=== PATIENT | female | born 1960 | race African-American/Black ===

== ENCOUNTER 2017-01-24 12:27 | Emergency (ER) | payer OTHER ==
[~2017-01-24] VITALS: Ht 154.9 cm; Wt 82.0 kg
[~2017-01-24 12:27] MED LIST: ALBU25PO2 INH; AMLO10TA4 PO; DIAZ5SOL PO; DOXY150T PO; FLONAS NS; OMEP20CA4 PO
[2017-01-24] MEDS ORDERED: DEXAMETHASONE 10 MG/ML VIAL IM ONE (17:00)
[2017-01-24] MEDS ORDERED: SODIUM CHLORIDE 0.9% 1,000 ML IV ONE (17:00)
[2017-01-24] MEDS ORDERED: KETOROLAC 30MG/ML VIAL IV STA (17:00)
[2017-01-24 17:08] VITALS: BP 137/70
[2017-01-24] MEDS ORDERED: CLINDAMYCIN 600 MG in DEXTROSE 5% WATER 50 ML IV ONE (17:30)
== END 2017-01-24 19:23 | disposition home or self-care (01) ==
LOC: ER 13:51
DX: J02.9 Acute pharyngitis, unspecified (principal); M25.60 Stiffness of unspecified joint, not elsewhere classified; Z88.6 Allergy status to analgesic agent
CPT/HCPCS: 96365; 96372; 99284; J1100; J3490; J7030; Z7610; J1885; J7060

== ENCOUNTER 2018-06-27 03:40 | Emergency (ER) | payer MEDICAID, OTHER ==
[~2018-06-27] VITALS: Ht 154.9 cm; Wt 85.0 kg
[2018-06-27] MEDS ORDERED: ALBUTEROL (0.083%) 2.5MG/3ML NEB HHN STA (06:20)
[2018-06-27] MEDS ORDERED: METHYLPREDNISOLONE SOD SUCC 125 MG/2 ML VIAL IV STA (06:20)
[2018-06-27] MEDS ORDERED: IPRATROPIUM BROMIDE (0.02%) 0.5MG/2.5ML NEB HHN STA (06:20)
[2018-06-27 06:47] LABS: BASOPHILS % 0.8 % (0.0-2.0); EOSINOPHILS % 2.7 % (0.0-5.0); HEMATOCRIT. 38.7 % (36.0-48.0); HEMOGLOBIN. 13.1 g/dL (12.0-16.0); LYMPHOCYTES % 33.7 % (20.0-50.0); MEAN CORPUSCULAR HEMOGLOBIN 32.2 pg (28.0-32.0); MEAN CORPUSCULAR VOLUME 94.8 fL (81.0-99.0); MEAN PLATELET VOLUME 8.2 fl (7.4-10.4); MONOCYTES % 9.8 % (2.0-8.0); PLATELET 427 x1000/uL (130-400); RED BLOOD CELL COUNT 4.08 mill/uL (4.2-5.4); RED CELL DISTRIBUTION WIDTH 13.6 % (11.6-14.6)
[2018-06-27 06:51] LABS: CHLORIDE 104 mEq/L (98-107)
[2018-06-27 06:59] LABS: ETHANOL BLOOD < 10 mg/dL
[2018-06-27 07:11] LABS: INR 1.1; PARTIAL THROMBOPLASTIN TIME 26.6 sec (23.4-31.0); PROTHROMBIN TIME 10.6 sec (9.1-11.1)
[2018-06-27 08:14] LABS: CLARITY URINE CLEAR (CLEAR); COLOR URINE YELLOW (YELLOW); KETONES URINE NEGATIVE (NEGATIVE); LEUKOCYTE ESTERASE URINE NEGATIVE (NEGATIVE); NITRITE URINE NEGATIVE (NEGATIVE); OCCULT BLOOD URINE NEGATIVE (NEGATIVE); PROTEIN URINE NEGATIVE (NEGATIVE); UROBILINOGEN URINE 0.2 E.U./dL (0.2-1.0)
[2018-06-27 08:58] LABS: *AMPHETAMINES SCREEN URINE NEGATIVE (NEGATIVE); *BARBITURATES SCREEN URINE NEGATIVE (NEGATIVE); *BENZODIAZEPINES SCREEN URINE PRESUMTIVE POSITIVE (NEGATIVE); *COCAINE SCREEN URINE PRESUMTIVE POSITIVE (NEGATIVE)
[2018-06-27 08:59] LABS: CANNABINOID URINE SCREEN NEGATIVE (NEGATIVE); METHADONE URINE SCREEN NEGATIVE (NEGATIVE); OPIATES URINE SCREEN NEGATIVE (NEGATIVE); PHENCYCLIDINE URINE SCREEN NEGATIVE (NEGATIVE)
[2018-06-27] MEDS ORDERED: ACETAMINOPHEN 325MG TABLET PO ONE (09:30)
[2018-06-27 09:40] VITALS: BP 145/71
== END 2018-06-27 10:29 | disposition home or self-care (01) ==
LOC: ER 03:40
DX: J44.1 Chronic obstructive pulmonary disease with (acute) exacerbation (principal); I11.0 Hypertensive heart disease with heart failure; I50.9 Heart failure, unspecified; K21.9 Gastro-esophageal reflux disease without esophagitis; F17.210 Nicotine dependence, cigarettes, uncomplicated; Z71.6 Tobacco abuse counseling; Z90.710 Acquired absence of both cervix and uterus; Z88.0 Allergy status to penicillin; Z88.2 Allergy status to sulfonamides; Z88.6 Allergy status to analgesic agent
CPT/HCPCS: 36415; 71045; 80053; 80305; 80320; 81003; 83690; 83880; 84484; 85025; 85610; 85730; 87040; 87804; 93005; 94640; 96374; 99284; 99406; J2930; J7611; Z7610; G0480

== ENCOUNTER 2019-11-14 13:32 | Emergency (ER) | payer MEDICAID, OTHER ==
[~2019-11-14] VITALS: Ht 154.9 cm; Wt 85.0 kg
[~2019-11-14 13:32] MED LIST changes: -DOXY150T PO; +DOXY150T5 PO
[2019-11-14] MEDS ORDERED: IBUPROFEN 600MG TABLET PO STA (14:21)
[2019-11-14] MEDS ORDERED: ACETAMINOPHEN 325MG TABLET PO STA (14:21)
[2019-11-14] MEDS ORDERED: LIDOCAINE 5% PATCH TOP SCH (14:30)
[2019-11-14] MEDS ORDERED: DEXAMETHASONE 4MG/ML 1ML VIAL IM ONE (14:45)
[2019-11-14 16:29] LABS: CLARITY URINE CLEAR (CLEAR); COLOR URINE YELLOW (YELLOW); KETONES URINE NEGATIVE (NEGATIVE); LEUKOCYTE ESTERASE URINE NEGATIVE (NEGATIVE); NITRITE URINE NEGATIVE (NEGATIVE); OCCULT BLOOD URINE NEGATIVE (NEGATIVE); PROTEIN URINE NEGATIVE (NEGATIVE); SPECIFIC GRAVITY URINE 1.014 (1.005-1.030); UROBILINOGEN URINE 0.2 E.U./dL (0.2-1.0)
[2019-11-14 16:51] VITALS: BP 165/76
== END 2019-11-14 17:12 | disposition home or self-care (01) ==
LOC: ER 13:32
DX: M54.30 Sciatica, unspecified side (principal); J45.909 Unspecified asthma, uncomplicated; I10 Essential (primary) hypertension; Z88.6 Allergy status to analgesic agent; Z79.899 Other long term (current) drug therapy; Z90.710 Acquired absence of both cervix and uterus; Z98.51 Tubal ligation status
CPT/HCPCS: 81003; 93005; 96372; 99284; J1100

== ENCOUNTER 2020-08-13 10:16 | Emergency (ER) | payer MEDICAID, OTHER ==
[~2020-08-13] VITALS: Ht 154.9 cm; Wt 82.0 kg
[2020-08-13] MEDS ORDERED: T3 PO (11:06)
[2020-08-13] MEDS ORDERED: ACETAMINOPHEN WITH CODEINE 300/30MG TABLET PO ONE (11:15)
[2020-08-13] MEDS ORDERED: DEXAMETHASONE 4MG/ML 1ML VIAL IM ONE (11:15)
[2020-08-13 11:29] VITALS: BP 146/79
== END 2020-08-13 12:16 | disposition home or self-care (01) ==
LOC: ER 10:16
DX: M65.312 Trigger thumb, left thumb (principal); M65.352 Trigger finger, left little finger; J44.1 Chronic obstructive pulmonary disease with (acute) exacerbation; J45.909 Unspecified asthma, uncomplicated; I10 Essential (primary) hypertension; Z79.899 Other long term (current) drug therapy; Z98.51 Tubal ligation status; Z88.6 Allergy status to analgesic agent; Z90.710 Acquired absence of both cervix and uterus; Z90.89 Acquired absence of other organs
CPT/HCPCS: 96372; 99283; J1100

== ENCOUNTER 2020-09-29 08:32 | Emergency (ER) | payer MEDICAID, OTHER ==
[~2020-09-29] VITALS: Ht 154.9 cm; Wt 81.0 kg
[~2020-09-29 08:32] MED LIST changes: +T3 PO
[2020-09-29] MEDS ORDERED: MORPHINE SULFATE 4 MG/ML CPJ (NOT FOR IM USE) IV ONE (09:15)
[2020-09-29] MEDS ORDERED: ONDANSETRON 4MG ODT PO ONE (09:15)
[2020-09-29 09:34] VITALS: BP 134/71
== END 2020-09-29 09:55 | disposition home or self-care (01) ==
LOC: ER 08:32
DX: M54.5 Low back pain (principal); K21.9 Gastro-esophageal reflux disease without esophagitis; I10 Essential (primary) hypertension; J45.909 Unspecified asthma, uncomplicated; Z98.890 Other specified postprocedural states; Z88.6 Allergy status to analgesic agent; Z88.8 Allergy status to other drugs, medicaments and biological substances; Z88.2 Allergy status to sulfonamides; Z90.710 Acquired absence of both cervix and uterus; Z88.0 Allergy status to penicillin
CPT/HCPCS: 96374; 99283; J2270; Q0162

== ENCOUNTER 2021-07-04 07:37 | Emergency (ER) | payer MEDICAID ==
[~2021-07-04] VITALS: Ht 154.9 cm; Wt 79.0 kg
[~2021-07-04 07:37] MED LIST changes: +CETI5TAB5 MT; -DOXY150T5 PO; +LEVO500T89 MT
[2021-07-04 08:46] LABS: HEMATOCRIT. 35.2 % (36.0-48.0); HEMOGLOBIN. 12.1 g/dL (12.0-16.0); MEAN CORPUSCULAR HEMOGLOBIN 33.6 pg (28.0-32.0); MEAN PLATELET VOLUME 7.6 fl (7.4-10.4); PLATELET 729 x1000/uL (130-400); RED BLOOD CELL COUNT 3.59 mill/uL (4.2-5.4); RED CELL DISTRIBUTION WIDTH 13.3 % (11.6-14.6)
[2021-07-04 08:48] LABS: CHLORIDE 107 mEq/L (98-107)
[2021-07-04 09:44] VITALS: BP 131/71
[2021-07-04 09:50] LABS: PLATELET ESTIMATE INCREASED
== END 2021-07-04 09:44 | disposition home or self-care (01) ==
LOC: ER 07:37
DX: R04.2 Hemoptysis (principal); R05.8 Other specified cough; M54.89 Other dorsalgia; I10 Essential (primary) hypertension; Z87.01 Personal history of pneumonia (recurrent); Z86.19 Personal history of other infectious and parasitic diseases; Z88.8 Allergy status to other drugs, medicaments and biological substances; Z88.6 Allergy status to analgesic agent; Z88.0 Allergy status to penicillin; Z88.2 Allergy status to sulfonamides
CPT/HCPCS: 36415; 71045; 80053; 85025; 93005; 99285

== ENCOUNTER 2021-07-08 07:35 | Emergency (ER) | payer MEDICAID ==
[~2021-07-08] VITALS: Ht 154.9 cm; Wt 73.0 kg
[2021-07-08] MEDS ORDERED: ALBUTEROL (0.083%) 2.5MG/3ML NEB HHN STA (08:19)
[2021-07-08] MEDS ORDERED: IPRATROPIUM BROMIDE (0.02%) 0.5MG/2.5ML NEB HHN STA (08:19)
[2021-07-08 09:01] VITALS: BP 120/72
[2021-07-08] MEDS ORDERED: ALBU6.7H15 INH (09:53)
== END 2021-07-08 10:15 | disposition home or self-care (01) ==
LOC: ER 07:35
DX: J44.1 Chronic obstructive pulmonary disease with (acute) exacerbation (principal); R04.2 Hemoptysis; I10 Essential (primary) hypertension; J45.909 Unspecified asthma, uncomplicated; F17.200 Nicotine dependence, unspecified, uncomplicated; Z88.0 Allergy status to penicillin; Z88.6 Allergy status to analgesic agent; Z79.899 Other long term (current) drug therapy; Z98.51 Tubal ligation status
CPT/HCPCS: 71045; 93005; 94640; 99283; Z7610

== ENCOUNTER 2021-08-16 09:50 | Emergency (ER) | payer MEDICAID ==
[~2021-08-16] VITALS: Ht 154.9 cm; Wt 70.0 kg
[~2021-08-16 09:50] MED LIST changes: +ALBU6.7H15 INH
[2021-08-16 10:17] VITALS: BP 161/73
[2021-08-16] MEDS ORDERED: ACETAMINOPHEN 325MG TABLET PO STA (11:45)
[2021-08-16 12:18] LABS: CHLORIDE 106 mEq/L (98-107)
[2021-08-16 12:27] LABS: BASOPHILS % 0.6 % (0.0-2.0); EOSINOPHILS % 1.7 % (0.0-5.0); HEMATOCRIT. 39.6 % (36.0-48.0); HEMOGLOBIN. 13.2 g/dL (12.0-16.0); LYMPHOCYTES % 36.5 % (20.0-50.0); MEAN CORPUSCULAR HEMOGLOBIN 32.6 pg (28.0-32.0); MEAN CORPUSCULAR VOLUME 97.9 fL (81.0-99.0); MEAN PLATELET VOLUME 8.3 fl (7.4-10.4); MONOCYTES % 7.9 % (2.0-8.0); NEUTROPHILS % 53.3 % (40.0-76.0); PLATELET 402 x1000/uL (130-400); RED BLOOD CELL COUNT 4.05 mill/uL (4.2-5.4); RED CELL DISTRIBUTION WIDTH 13.5 % (11.6-14.6)
[2021-08-16] MEDS ORDERED: ACET-2708 PO ×2 (13:02)
[2021-08-16] MEDS ORDERED: TRAM50TA PO ×2 (13:02)
[2021-08-16] MEDS ORDERED: T3 PO (13:16)
== END 2021-08-16 13:33 | disposition home or self-care (01) ==
LOC: ER 11:26
DX: M25.511 Pain in right shoulder (principal); J45.909 Unspecified asthma, uncomplicated; I10 Essential (primary) hypertension; Z88.0 Allergy status to penicillin; Z88.6 Allergy status to analgesic agent; Z79.899 Other long term (current) drug therapy; Z98.51 Tubal ligation status
CPT/HCPCS: 36415; 73030; 80053; 85025; 99284

== ENCOUNTER 2021-10-02 03:51 | Emergency (ER) | payer MEDICAID ==
[~2021-10-02] VITALS: Ht 154.9 cm; Wt 80.0 kg
[~2021-10-02 03:51] MED LIST changes: -LEVO500T89 MT; +LEVO500T90 MT
[2021-10-02 05:30] VITALS: BP 149/68
[2021-10-02] MEDS ORDERED: ACETAMINOPHEN 325MG TABLET PO ONE (05:45)
[2021-10-02 06:01] LABS: BASOPHILS % 0.7 % (0.0-2.0); EOSINOPHILS % 1.8 % (0.0-5.0); HEMATOCRIT. 39.1 % (36.0-48.0); HEMOGLOBIN. 12.8 g/dL (12.0-16.0); LYMPHOCYTES % 28.9 % (20.0-50.0); MEAN CORPUSCULAR HEMOGLOBIN 32.3 pg (28.0-32.0); MEAN CORPUSCULAR VOLUME 98.9 fL (81.0-99.0); MONOCYTES % 8.2 % (2.0-8.0); NEUTROPHILS % 60.4 % (40.0-76.0); PLATELET 396 x1000/uL (130-400); RED BLOOD CELL COUNT 3.96 mill/uL (4.2-5.4); RED CELL DISTRIBUTION WIDTH 13.3 % (11.6-14.6)
[2021-10-02 06:09] LABS: CHLORIDE 108 mEq/L (98-107)
== END 2021-10-02 08:06 | disposition left against medical advice (07) ==
LOC: ER 03:51
DX: R51.9 Headache, unspecified (principal); R06.02 Shortness of breath; F43.8 Other reactions to severe stress; F41.9 Anxiety disorder, unspecified; I10 Essential (primary) hypertension; Z90.710 Acquired absence of both cervix and uterus; Z98.51 Tubal ligation status; F12.10 Cannabis abuse, uncomplicated
CPT/HCPCS: 36415; 80053; 83880; 85025; 93005; 99285

== ENCOUNTER 2023-08-02 07:16 | Emergency (ER) | payer MEDICAID ==
[~2023-08-02] VITALS: Ht 165.1 cm; Wt 94.0 kg
[~2023-08-02 07:16] MED LIST changes: +LEVO-65 MT; -LEVO500T90 MT
[2023-08-02 08:34] LABS: BASOPHILS % 0.8 % (0.0-2.0); HEMATOCRIT. 40.3 % (36.0-48.0); HEMOGLOBIN. 13.5 g/dL (12.0-16.0); LYMPHOCYTES % 27.2 % (20.0-50.0); MEAN CORPUSCULAR HEMOGLOBIN 33.4 pg (28.0-32.0); MEAN CORPUSCULAR HGB CONC 33.5 g/dL (31.0-37.0); MEAN CORPUSCULAR VOLUME 99.7 fL (81.0-99.0); MEAN PLATELET VOLUME 8.3 fl (7.4-10.4); MONOCYTES % 6.2 % (2.0-8.0); NEUTROPHILS % 63.8 % (40.0-76.0); PLATELET 420 x1000/uL (130-400); RED BLOOD CELL COUNT 4.04 mill/uL (4.2-5.4); RED CELL DISTRIBUTION WIDTH 13.2 % (11.6-14.6); WHITE BLOOD COUNT 8.3 x1000/uL (4.5-11.0)
[2023-08-02 08:43] LABS: INR 0.9; PARTIAL THROMBOPLASTIN TIME 26.8 sec (23.4-31.0); PROTHROMBIN TIME 10.4 sec (9.6-11.0)
[2023-08-02 08:50] LABS: ALANINE AMINOTRANSFERASE 26 IU/L (10-49); ALBUMIN 4.4 g/dL (3.2-4.8); ASPARTATE AMINOTRANSFERASE 23 IU/L (<34); BILIRUBIN TOTAL 0.6 mg/dL (0.1-1.0); CALCIUM 8.9 mg/dL (8.7-10.4); CARBON DIOXIDE 23 mEq/L (21-32); CHLORIDE 107 mEq/L (98-107); CREATININE 0.8 mg/dL (0.6-1.0); GLUCOSE 125 mg/dL (70-105); PROTEIN TOTAL 7.4 g/dL (6.0-8.3); SODIUM 137 mEq/L (136-145); UREA NITROGEN BLOOD 10 mg/dL (9-23)
[2023-08-02 08:51] LABS: TROPONIN I HIGH SENSITIVITY < 4 ng/L (3.0-34)
[2023-08-02] MEDS: PREDNISONE 20MG TABLET PO ONE (08:59)
[2023-08-02] MEDS: IPRATROPIUM/ALBUTEROL 0.5-3(2.5)MG/3ML NEB HHN ONE (09:02)
[2023-08-02 09:03] VITALS: PULSE 77; RESP 20; O2SAT 97
[2023-08-02] MEDS: ALBUTEROL (0.083%) 2.5MG/3ML NEB HHN ONE (09:03)
[2023-08-02 09:45] LABS: *AMPHETAMINES SCREEN URINE NEGATIVE (NEGATIVE); *BARBITURATES SCREEN URINE NEGATIVE (NEGATIVE); *BENZODIAZEPINES SCREEN URINE PRESUMPTIVE POSITIVE (NEGATIVE); *COCAINE SCREEN URINE PRESUMPTIVE POSITIVE (NEGATIVE); CANNABINOID URINE SCREEN NEGATIVE (NEGATIVE); ECSTASY MDMA SCREEN URINE NEGATIVE (NEGATIVE); METHADONE URINE SCREEN Neg (NEGATIVE); OPIATES URINE SCREEN NEGATIVE (NEGATIVE); PHENCYCLIDINE URINE SCREEN NEGATIVE (NEGATIVE)
[2023-08-02] MEDS ORDERED: P50 MT (10:01)
[2023-08-02 10:15] VITALS: BP 130/82; PULSE 85; RESP 18; TEMP 98.1
[2023-08-02 15:05] LABS: CLARITY URINE TURBID (CLEAR); COLOR URINE YELLOW (YELLOW); GLUCOSE URINE NEGATIVE (NEGATIVE); KETONES URINE NEGATIVE (NEGATIVE); LEUKOCYTE ESTERASE URINE NEGATIVE (NEGATIVE); NITRITE URINE NEGATIVE (NEGATIVE); OCCULT BLOOD URINE NEGATIVE (NEGATIVE); PH URINE 5.5 (4.5-8.0); PROTEIN URINE NEGATIVE (NEGATIVE); UROBILINOGEN URINE 0.2 E.U./dL (0.2-1.0)
[2023-08-02 15:25] LABS: SQUAMOUS EPITHELIAL CELL URINE 1+ /lpf (RARE/1+)
[2023-08-02 15:26] LABS: AMORPHOUS SEDIMENT URINE 3+ /lpf; BACTERIA URINE TRACE; RBC URINE NONE SEEN /hpf (0-2); WBC URINE 0-2 /hpf (0-2)
== END 2023-08-02 10:22 | disposition home or self-care (01) ==
LOC: ER 07:16
DX: J44.1 Chronic obstructive pulmonary disease with (acute) exacerbation (principal); F17.200 Nicotine dependence, unspecified, uncomplicated; I10 Essential (primary) hypertension; Z98.51 Tubal ligation status; Z90.710 Acquired absence of both cervix and uterus; Z88.0 Allergy status to penicillin; Z88.6 Allergy status to analgesic agent; Z79.899 Other long term (current) drug therapy; Z90.89 Acquired absence of other organs
CPT/HCPCS: 80053; 80305; 81003; 83880; 85025; 85610; 85730; 84484; 36415; 71045; 94640; 93005; 99285; J7512; Z7610 ×4

== ENCOUNTER 2024-04-29 09:36 | Emergency (ER) | payer MEDICAID ==
[~2024-04-29] VITALS: Ht 154.9 cm; Wt 81.0 kg
[~2024-04-29 09:36] MED LIST changes: +P50 MT
[2024-04-29 09:46] VITALS: BP 136/62; TEMP 98.3; O2SAT 97
[2024-04-29 09:50] VITALS: PULSE 82; RESP 18; O2SAT 97
== END 2024-04-29 13:51 | disposition left against medical advice (07) ==
LOC: ER 09:36
DX: M25.519 Pain in unspecified shoulder (principal); Z53.21 Procedure and treatment not carried out due to patient leaving prior to being seen by health care provider

== ENCOUNTER 2024-04-30 07:55 | Emergency (ER) | payer MEDICAID ==
[~2024-04-30] VITALS: Ht 154.9 cm; Wt 81.6 kg
[2024-04-30 08:06] VITALS: BP 140/75; PULSE 94; RESP 18; O2SAT 97
[2024-04-30 10:16] VITALS: TEMP 98.1
[2024-04-30] MEDS: ACETAMINOPHEN 500MG TABLET PO NR (10:16)
== END 2024-04-30 11:51 | disposition home or self-care (01) ==
LOC: ER 07:55
DX: S42.292A Other displaced fracture of upper end of left humerus, initial encounter for closed fracture (principal); F41.9 Anxiety disorder, unspecified; I10 Essential (primary) hypertension; K21.9 Gastro-esophageal reflux disease without esophagitis; J44.89 Other specified chronic obstructive pulmonary disease; Z79.899 Other long term (current) drug therapy; Z90.710 Acquired absence of both cervix and uterus; Z88.0 Allergy status to penicillin; Z88.2 Allergy status to sulfonamides; Z88.6 Allergy status to analgesic agent; W19.XXXA Unspecified fall, initial encounter; Y93.89 Activity, other specified; Y92.89 Other specified places as the place of occurrence of the external cause; Y99.8 Other external cause status
CPT/HCPCS: 73030; 73200; 99284

== ENCOUNTER 2024-12-10 05:17 | Emergency (ER) | payer MEDICAID ==
[~2024-12-10] VITALS: Ht 154.9 cm; Wt 82.0 kg
[~2024-12-10 05:17] MED LIST changes: +AMLO-905 PO; -AMLO10TA4 PO
[2024-12-10 05:26] VITALS: O2SAT 97
[2024-12-10] MEDS: MORPHINE SULFATE 4 MG/ML INJ (FOR IV/IM USE) IV ONE (06:07)
[2024-12-10 06:09] LABS: BASOPHILS % 1.3 % (0.0-2.0); EOSINOPHILS % 2.3 % (0.0-5.0); HEMATOCRIT. 40.9 % (36.0-48.0); HEMOGLOBIN. 13.8 g/dL (12.0-16.0); LYMPHOCYTES % 35.1 % (20.0-50.0); MEAN PLATELET VOLUME 8.5 fl (7.4-10.4); MONOCYTES % 11.4 % (2.0-8.0); NEUTROPHILS % 49.9 % (40.0-76.0); PLATELET 360 x1000/uL (130-400); RED BLOOD CELL COUNT 4.19 mill/uL (4.2-5.4); RED CELL DISTRIBUTION WIDTH 13.5 % (11.6-14.6)
[2024-12-10 06:17] LABS: CREATININE 0.9 mg/dL (0.6-1.0)
[2024-12-10 06:18] LABS: UREA NITROGEN BLOOD 9 mg/dL (9-23)
[2024-12-10 06:19] LABS: ASPARTATE AMINOTRANSFERASE 25 IU/L (<34); TROPONIN I HIGH SENSITIVITY < 4 ng/L (3.0-34)
[2024-12-10 06:20] LABS: BILIRUBIN DIRECT 0.2 mg/dL (<=3.0); BILIRUBIN TOTAL 0.7 mg/dL (0.1-1.0); PROTEIN TOTAL 7.2 g/dL (6.0-8.3)
[2024-12-10 07:39] VITALS: TEMP 36.7
[2024-12-10] MEDS: ACETAMINOPHEN 500MG TABLET PO PRN (09:50)
[2024-12-10 10:06] VITALS: O2SAT 96
[2024-12-10] MEDS ORDERED: GUAIFENESIN 200MG/10ML SUGAR FREE UDC PO PRN (10:45)
[2024-12-10] MEDS ORDERED: MAGNESIUM/ALUMINUM HYDROXIDE/SIMETHICONE 30ML UDC PO PRN (10:45)
[2024-12-10] MEDS ORDERED: IPRATROPIUM/ALBUTEROL 0.5-3(2.5)MG/3ML NEB HHN PRN (10:45)
[2024-12-10] MEDS ORDERED: ONDANSETRON HCL 4MG/2ML INJ IV PRN (10:45)
[2024-12-10] MEDS ORDERED: CLONIDINE 0.1MG TABLET PO PRN (10:45)
[2024-12-10] MEDS ORDERED: DOCUSATE SODIUM 100MG CAPSULE PO PRN (10:45)
[2024-12-10] MEDS ORDERED: ACETAMINOPHEN 325MG TABLET PO PRN ×2 (10:45)
[2024-12-10 10:52] LABS: PHOSPHORUS 3.8 mg/dL (2.5-4.9)
[2024-12-10] MEDS: ENOXAPARIN 40MG/0.4ML SYR SUBCUT SCH (11:00)
[2024-12-10] MEDS ORDERED: NALOXONE HCL 0.4MG/ML VIAL IV PRN (11:15)
[2024-12-10 11:16] VITALS: BP 127/84; PULSE 77; RESP 12
[2024-12-10] MEDS: MORPHINE SULFATE 2 MG/ML INJ (NOT FOR IM USE) IV PRN (11:16)
[2024-12-10] MEDS: LORAZEPAM 0.5MG TABLET PO PRN (11:16)
[2024-12-10] MEDS ORDERED: GABAPENTIN 100MG CAPSULE PO SCH (14:00)
[2024-12-10] MEDS ORDERED: AMLODIPINE 5MG TABLET PO SCH (21:00)
[2024-12-11] MEDS ORDERED: PANTOPRAZOLE SODIUM 40 MG/VIAL IV SCH (09:00)
[2024-12-11] MEDS ORDERED: MULTIVITAMINS,THER W-MINERALS TABLET PO SCH (09:00)
[2024-12-11] MEDS ORDERED: ASPIRIN 81MG EC TABLET PO SCH (09:00)
== END 2024-12-10 11:40 | disposition left against medical advice (07) ==
LOC: ER 05:54 → ENRESERV 11:34 → CANBEDREQ 11:34 → ER 11:40
DX: G89.29 Other chronic pain (principal); R07.89 Other chest pain; M54.6 Pain in thoracic spine; R10.9 Unspecified abdominal pain; F17.210 Nicotine dependence, cigarettes, uncomplicated; F41.1 Generalized anxiety disorder; I10 Essential (primary) hypertension; J45.909 Unspecified asthma, uncomplicated; Z79.52 Long term (current) use of systemic steroids; Z79.899 Other long term (current) drug therapy; Z88.0 Allergy status to penicillin; Z88.2 Allergy status to sulfonamides; Z88.6 Allergy status to analgesic agent; Z90.710 Acquired absence of both cervix and uterus
CPT/HCPCS: 99285; 96374; 71045; 80076; 80048; 83735; 84100; 85025; 84484; 36415; 93005; 96376; J2270 ×2